=== PATIENT | female | born 1955 | race American Indian/Alaskan Native ===

== ENCOUNTER 2020-04-29 07:59 | Day surgery (SDC) | payer MEDICARE ==
[~2020-04-29 07:59] MED LIST: ceFAZolin/Water 2 GM/20 ML 2 GM/20 ML SYRINGE IV NR
[2020-04-29] MEDS ORDERED: ONDANSETRON 4 MG/2 ML INJ ONE (08:05)
[2020-04-29] MEDS ORDERED: HYDROmorphone 1 MG/1 ML INJ ONE (08:05)
[2020-04-29] MEDS ORDERED: dexAMETHasone 20 MG/5 ML VIAL ONE (08:05)
[2020-04-29] MEDS ORDERED: LIDOCAINE MPF (2%) 20 MG/1 ML VIAL 5 ML ONE (08:05)
[2020-04-29] MEDS ORDERED: propofoL 200 MG/20 ML VIAL IV ONE (08:06)
[2020-04-29] MEDS ORDERED: SODIUM CHLORIDE 0.9% 1000 ML 1,000 ML IV SCH (08:15)
[2020-04-29] MEDS ORDERED: HEPARIN 10,000 UNITS/10 ML VIAL IV ONE ×3 (08:33→11:17)
[2020-04-29] MEDS ORDERED: SODIUM CHLORIDE 0.9% IRR 1,500 ML BOTTLE IR ONE ×2 (08:34→11:10)
[2020-04-29] MEDS ORDERED: BUPIVACAINE/PF (0.5%) 5 MG/1 ML 10 ML VIAL INFILTRATI ONE ×2 (08:34→11:05)
[2020-04-29] MEDS ORDERED: SODIUM CHLORIDE 0.9% 500 ML IVPB IV ONE (08:35)
[2020-04-29] MEDS ORDERED: LIDOCAINE (1%) 10 MG/1 ML VIAL 20 ML MDV INFILTRATI ONE (08:36)
[2020-04-29] MEDS ORDERED: HEPARIN 10,000 UNIT/1 ML VIAL ONE (08:44)
[2020-04-29] MEDS ORDERED: HEPARIN 10,000 UNITS/10 ML VIAL ONE (08:45)
[2020-04-29] MEDS ORDERED: BUPIVACAINE/PF (0.5%) 5 MG/1 ML 30 ML VIAL INFILTRATI ONE (08:47)
[2020-04-29] MEDS ORDERED: LIDOCAINE-MPF (1%) 10 MG/1 ML VIAL 5 ML ONE (08:50)
[2020-04-29] MEDS ORDERED: LIDOCAINE (1%) 10 MG/1 ML VIAL 20 ML MDV ONE (08:51)
--- NOTE | 2020-04-29 08:53 | Anesthesia Day of Surgery ---
Anesthesia Day of Surgery - Day of Surgery Patient Examined: Yes Patient H&P Reviewed: Yes Patient is NPO: Yes Beta Blockers: Yes Cardiac Clearance: No Pulmonary Clearance: No Tobi's Test: N/A
[2020-04-29] MEDS ORDERED: SODIUM CHLORIDE 0.9% 500 ML 500 ML ONE (08:54)
--- NOTE | 2020-04-29 08:57 | Anesthesia Consultation ---
Anesthesia Consult and Med Hx Date of service: 04/29/20 - Airway Anesthetic Teeth Evaluation: Poor ROM Head & Neck: Adequate Mental/Hyoid Distance: Adequate Mallampati Class: Class II Intubation Access Assessment: Probably Good - Pulmonary Exam CTA: No - Cardiac Exam Cardiac Exam: RRR - Pre-Operative Health Status ASA Pre-Surgery Classification: ASA4 Proposed Anesthetic Plan: General - Pulmonary Hx Smoking: No Hx Asthma: No Hx Respiratory Symptoms: No SOB: No COPD: No Home Oxygen Therapy: No Hx Pneumonia: No Hx Sleep Apnea: Yes - Cardiovascular System Hx Hypertension: Yes Hx Heart Attack/AMI: No Hx Angina: No Hx Percutaneous Transluminal Coronary Angioplasty (PTCA): No Hx Cardia Arrhythmia: No Hx Pacemaker: No Hx Internal Defibrillator: No Hx Valvular Heart Disease: No Hx Heart Murmur: No Hx Peripheral Vascular Disease: No - Central Nervous System Hx Neuromuscular Disorder: No Hx Seizures: No Hx Back Pain: Yes Hx Psychiatric Problems: No - Gastrointestinal Hx Ulcer: No Hx Gastroesophageal Reflux Disease: Yes - Endocrine Hx Renal Disease: Yes Hx End Stage Renal Disease: Yes (LT UPPER CHEST PERMACATH) Hx Cirrhosis: No Hx Liver Disease: No Hx Insulin Dependent Diabetes: Yes Hx Thyroid Disease: No Hx Hypothyroidism: No Hx Hyperthyroidism: No - Hematic Hx Anemia: No Hx Sickle Cell Disease: No - Other Systems Hx Alcohol Use: No Hx Substance Use: No Hx Cancer: No Hx Obesity: Yes
[2020-04-29] MEDS ORDERED: DEXTROSE 50% IN WATER (25GM) 50 ML SYRINGE IV NR (09:04)
[2020-04-29 09:12] LABS: Hematocrit 35.9 % (30.3-42.9); Hemoglobin 11.3 gm/dl (10.1-14.3); Mean Corpuscular HGB Conc 32 % (30-34); Mean Corpuscular Volume 83 fl (79-97); Platelet Count 178 K/mm3 (140-440); Red Blood Count 4.34 M/mm3 (3.65-5.03)
[2020-04-29 09:13] LABS: Red Cell Distribution Width 20.1 % (13.2-15.2)
[2020-04-29 09:33] LABS: Calcium 9.6 mg/dL (8.4-10.2)
[2020-04-29] MEDS ORDERED: rifAMPin 600 MG VIAL ONE (10:16)
[2020-04-29] MEDS ORDERED: SODIUM CHLORIDE 0.9% 250ML 250 ML ONE (10:17)
[2020-04-29] MEDS ORDERED: PHENYLEPHRINE/NS 1,000 MCG/10 ML SYRINGE (OR USE) IV ONE ×2 (10:57→11:51)
[2020-04-29] MEDS ORDERED: rifAMPin 600 MG VIAL IV ONE (11:15)
[2020-04-29] MEDS ORDERED: ePHEDrine SULFATE 50 MG/1 ML INJ ONE (11:35)
[2020-04-29] MEDS ORDERED: PHENYLEPHRINE 10 MG/1 ML INJ SDV ONE (11:51)
--- NOTE | 2020-04-29 12:47 | Short Stay Summary ---
Short Stay Documentation Date of service: 04/29/20 Narrative H&P: See H&P - History H&P: obtained from office - Allergies and Medications Current Medications: Allergies TETRACYCLINE-SWELLING ON BRAIN Adverse Reaction (Severe, Uncoded 04/23/20 12:58) Swelling SWELLING ON BRAIN Home Medications Medication Instructions Recorded Confirmed Last Taken Type Eliquis 5 mg PO BID 04/23/20 04/29/20 04/26/20 17:00 History AtorvaSTATin [Lipitor] 40 mg PO QHS 04/29/20 04/29/20 04/27/20 20:00 History Cinacalcet HCl [Sensipar] 60 mg PO 3XW 04/29/20 04/29/20 04/27/20 08:00 History Levothyroxine [Synthroid] 125 mcg PO QAM 04/29/20 04/29/20 04/28/20 08:00 History Metoprolol Tartrate [Lopressor] 25 mg PO BID 04/29/20 04/29/20 04/29/20 06:00 History Pregabalin [Lyrica] 25 mg PO BID 04/29/20 04/29/20 04/22/20 08:00 History Active Medications Cefazolin Sodium (Ancef/Sterile Water 2 Gm/20 Ml) 2 gm in 20 mls @ 80 mls/hr IV PREOP NR; Protocol Stop: 04/29/20 23:59 Sodium Chloride (Nacl 0.9% 1000 Ml) 1,000 mls @ 42 mls/hr IV DIRECT ZORAN Last Admin: 04/29/20 09:15 Dose: 42 mls/hr Documented by: - Brief post op/procedure progress note Date of procedure: 05/06/20 Pre-op diagnosis: End-Stage Renal Disease Post-op diagnosis: same Procedure: Creation of Left Brachial Artery to Left Axillary Vein Arteriovenous Graft with 6 mm Bovine Artegraft Anesthesia: GETA Surgeon: LESTER DOUGLAS Estimated blood loss: minimal Pathology: none Condition: stable - Disposition Condition at discharge: Good Disposition: DC-01 TO HOME OR SELFCARE Short Stay Discharge Plan Activity: other (No heavy lifting with left arm for 2 weeks.) Wound: open to air, keep clean and dry, other (Okay to wash the wounds with soap and water but do not soak in water for 2 weeks.) Follow up with: LESTER DOUGLAS MD [Staff Physician] - 14 Days Prescriptions: HYDROcodone/APAP 7.5-325 [[place] 7.5/325] 1 each PO Q6HR PRN #30 tablet PRN Reason: Pain
--- NOTE | 2020-04-29 12:50 | Operative Report ---
Operative Report Operative Report: Date of procedure: 04/29/2020 Pre-operative diagnosis: End-Stage Renal Disease Post-operative diagnosis: Same Procedure(s): 1. Creation of Left Brachial Artery to Axillary Vein AV Graft with 6 mm Bovine Graft Artergraft Surgeon: Christopher Yen MD Licensed Reactor Operator: None Anesthesia: General Endotracheal Anesthesia EBL: Minimal Counts: Correct Complications: None Condition: Stable Findings: Successful Creation of Left Arm AV Graft with Palpable Thrill and Palpable Radial Pulse at the Completion of the Case. Specimen: None Indication: The patient is a 64-year-old female with a history of end-stage renal disease who is currently on hemodialysis through a permacath. She is in need of long- term dialysis access and requires creation of an arteriovenous graft. She was given the risk, benefits, and alternative procedures and consented to the procedure. Description of Procedure: The patient was brought to the operating room and laid in supine position. After general endotracheal anesthesia was achieved the patient's left arm was prepped and draped in normal sterile fashion. A longitudinal incision was made on the medial aspect of the arm just proximal to the antecubital crease and carried down to the brachial artery using sharp dissection. The brachial artery was dissected out circumferentially both proximally and distally and controlled with vessel loops. A second incision was created in longitudinal fashion on the medial aspect of the arm just distal to the axillary crease and carried down to the axillary vein using sharp dissection. Axillary vein was dissected out circumferentially and controlled with a vessel loop. I then used a Dede-Wick tunneler to tunnel from the brachial artery incision to the axillary vein incision and then put an 6 mm bovine through the tunnel. I infused with heparinized saline to ensure that it was not twisted or kinked. I put the brachial artery vessel loops on tension controlling the flow and then created an arteriotomy using an 11 blade and Mark scissors. I beveled the graft and created an end-to-side anastomosis using 6-0 Prolene running fashion. I clamped the graft just proximal to the anastomosis and then released the vessel loops restoring flow in the brachial artery. I placed quick clot in incision to achieve hemostasis. I cut the proximal end of the graft to the appropriate length and beveled the graft in preparation for a venous anastomosis. I controlled the axillary vein a Satinsky clamp and created a venotomy using an 11 blade and Mark scissors. I created an end to side anastomosis using a 6-0 Prolene in running fashion. Prior to completing the anastomosis I flushed the graft to ensure there was no thrombus and then completed the anastamosis. I released all clamps allowing flow into the AV graft which had an excellent thrill. I packed the wound with quick clot to achieve hemostasis. I anesthetized both wounds with 0.5% Marcaine and then closed both wounds in 2 layers using 3-0 Vicryl in running fashion in the deep dermal layer and 4-0 Monocryl in running fashion the subcuticular layer. I dressed both wounds with Dermabond. The patient tolerated the procedure well all sponge, needle, and instrument counts were correct. The patient was taken to recovery in stable condition.
--- NOTE | 2020-04-29 13:33 | Post Anesthesia Evaluation ---
- Post Anesthesia Evaluation Patient Participated: Yes Airway Patent: Yes Stable Respiratory Function: Yes Nausea/Vomiting: No Temp > 96.8F: Yes Pain Manageable: Yes Adequeate Hydration: Yes Anesthesia Complications: No Block Receding Appropriately: Not Applicable Patient on Ventilator: No
[2020-04-29 15:25] VITALS: BP 115/52
== END 2020-04-29 14:40 | disposition home or self-care (01) ==
LOC: OR 07:59
PROVIDERS: ATTEND Surgery Vascular Surgery
DX: I12.0 Hypertensive chronic kidney disease with stage 5 chronic kidney disease or end stage renal disease (principal); E11.22 Type 2 diabetes mellitus with diabetic chronic kidney disease; N18.6 End stage renal disease; E78.00 Pure hypercholesterolemia, unspecified; G47.30 Sleep apnea, unspecified; M06.9 Rheumatoid arthritis, unspecified; K21.9 Gastro-esophageal reflux disease without esophagitis; E66.9 Obesity, unspecified; Z98.51 Tubal ligation status; Z87.440 Personal history of urinary (tract) infections; Z95.1 Presence of aortocoronary bypass graft; Z98.890 Other specified postprocedural states; Z79.899 Other long term (current) drug therapy; Z88.8 Allergy status to other drugs, medicaments and biological substances
CPT/HCPCS: 36415; 36830; 80048; 82962; 85027; J0690; J1100; J1170; J1644; J2370; J2405; J2704; J3490; J7030; J7040; J7050; C1768